=== PATIENT | female | born 1955 | race Caucasian/White ===

== ENCOUNTER 2023-07-03 07:05 | Outpatient (OUT) | payer MEDICARE, OTHER, SELFPAY ==
--- NOTE | 2023-07-03 08:09 | CA_ITS ---
Patient Name: ERICH VEGA MR#: [id number] : 1955 Exam Date: 07/03/2023 Ordering Doctor: ERICH FULLER ECHOCARDIOGRAM REPORT PROCEDURE: CA ECHO DOPPLER COMPLETE INDICATIONS: Systolic murmur COMPARISON: None. DESCRIPTION: COMPLETE ECHOCARDIOGRAM Real-time transthoracic echocardiography with 2D, M-mode, spectral and color flow Doppler performed. QUALITY: Technical quality was good. LEFT VENTRICLE: Normal chamber size. Mild concentric left ventricular hypertrophy. Global left ventricular systolic function is normal. LV EF: Estimated left ventricular ejection fraction is 55-60% DIASTOLIC: Diastolic function is indeterminate. ATRIAL SEPTUM: LEFT ATRIUM: Moderate dilatation. RIGHT ATRIUM: Mild dilatation. RIGHT VENTRICLE: Normal chamber size. Normal right ventricular systolic function. TRICUSPID VALVE: Normal mobility and thickness. No stenosis with mild regurgitation. No evidence of pulmonary hypertension. RVSP 30 mmHg MITRAL VALVE: Mildly thickened with normal mobility. No evidence of mitral valve stenosis. Moderate mitral annular calcification. Mild mitral regurgitation. AORTIC VALVE: Normal trileaflet appearance. Moderately calcified aortic valve. Moderately diminished mobility. Doppler velocity suggest moderate aortic valve stenosis. DVI 0.4, ARIELLA 1.3 cm2. No aortic regurgitation. AORTIC ROOT: Normal diameter and appearance. PULMONIC VALVE: Normal thickness and mobility. No stenosis. Trivial regurgitation. PERICARDIUM: No evidence of pericardial effusion. IVC: Collapses with inspirations. Normal size. PLEURA: CONCLUSION: 1. Mild concentric left ventricular hypertrophy with normal systolic function. LVEF is 55 to 60%. 2. Normal right ventricular size and systolic function. 3. Moderate aortic valve stenosis. 4. Mild mitral regurgitation. 5. Normal right-sided pressures. Adult Echocardiography Procedure Report Left Ventricle LVEDD (3.7 - 5.6 cm): 4.30 cm LVESD (2.2 - 4.0 cm): 2.81 cm LVIVS thickness (0.6 - 1.2 cm): 1.13 cm LVPW thickness (0.5 - 1.0 cm): 1.14 cm e': 0.08 m/s E - e': 9.39 LVOT Max Gradient: 1.57 mm[Hg] LVOT Area (cm2): 0.63 m/s Peak Velocity (LVOT): 0.63 m/s Mean Velocity (LVOT): 0.39 m/s LVOT Diameter 2.15 cm Left Ventricular Ejection Fraction: 55-60 % Left Atrium LA Volume Index (2D A2C): 54.20 ml/m2 Left Atrium Systolic Dimension: 3.41 cm Mitral Valve MV E to A Ratio: 0.75 Mitral Valve A-Wave Peak Velocity: 1.04 m/s Mitral Valve E-Wave Peak Velocity: 0.78 m/s Right Ventricle RV Internal Diastolic Dimension: 3.20 cm Aorta AO Root Diam: 3.48 cm Ascending Ao Diam: 3.24 cm Aortic Valve AoV Area ([place]): 1.29 cm2, 1.29 cm2, 1.28 cm2, 1.28 cm2 AoV Area (VTI): 1.30 cm2, 1.30 cm2 Peak Velocity(Antegrade Flow): 1.75 m/s, 1.77 m/s Peak Gradient(Antegrade Flow): 12.30 mm[Hg], 12.56 mm[Hg] Mean Velocity(Antegrade Flow): 1.28 m/s Mean Gradient(Antegrade Flow): 7.33 mm[Hg] Velocity Time Integral: 44.40 cm Tricuspid Valve Peak Velocity (Regurgitant Flow): 2.10 m/s, 2.03 m/s, 2.61 m/s Pulmonic Valve Mean Gradient: 2.16 mm[Hg], 2.14 mm[Hg] Mean Velocity: 0.70 m/s, 0.69 m/s Peak Velocity: 0.93 m/s, 0.85 m/s Peak Gradient: 2.87 mm[Hg], 3.32 mm[Hg], 3.56 mm[Hg] Right Atrium Right Atrium Systolic Pressure: 36.33 ml, 36.33 ml Dictated by: Jerardo Bautista M.D. on 07/03/2023 at 16:29 Approved by: Jerardo Bautista M.D. on 07/03/2023 at 16:36
== END 2023-07-03 07:06 | disposition home or self-care (01) ==
LOC: CARD 07:10
PROVIDERS: PCP Internal Medicine; Visit Provider Internal Medicine
DX: R01.1 Cardiac murmur, unspecified (principal)
CPT/HCPCS: 93306